=== PATIENT | female | born 1945 | race Caucasian/White ===

== ENCOUNTER → 2016-12-13 | Outpatient (REF) | payer MEDICARE, BC ==
[~2016-12-13] MED LIST: ASPI81TA85 PO; BIOT10005 PO; CALC600T21 PO; CINN500C9 PO; COQ-30CA2 PO; FEROCAP3 PO; IRBE300T10 PO; JANU100T PO; METF500T PO; METO25TA74 PO; MULT1CHW26 PO; MYRB25TA PO; OSTETAB4 PO; PAXI20TA3 PO; PAXI40TA2 PO; PROA1AER INH; SYST1SOL OU; VITA500046 PO; VITATAB11 PO
== END ==
LOC: M LAB REF 16:41
PROVIDERS: ATTEND Nurse Practitioner Adult Health
DX: Z01.89 Encounter for other specified special examinations (principal); Z79.899 Other long term (current) drug therapy

== ENCOUNTER 2017-01-04 20:06 | Emergency (ER) | payer OTHER, MEDICARE, BC ==
[~2017-01-04] VITALS: Ht 154.9 cm; Wt 97.5 kg
[~2017-01-04 20:06] MED LIST changes: +PANT20TA PO; +PRAV10TA PO
[2017-01-04] MEDS ORDERED: ALLE180T33 PO (20:37)
[2017-01-04] MEDS ORDERED: CRAN250T PO (20:37)
[2017-01-04] MEDS ORDERED: FLUTISP (20:37)
[2017-01-04] MEDS ORDERED: ACETAMINOPHEN 325 MG TAB PO ONE (21:45)
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
--- NOTE | 2017-01-04 22:10 | REPUSA ---
CLINICAL HISTORY: Neck pain. TECHNIQUE: Multiple axial images were obtained through the cervical spine. Images were also reconstru cted in coronal and sagittal planes. The study was performed without IV contrast. COMMENTS: There is no fracture. Grade 1 anterior spondylolisthesis is noted. The paraspinal soft tissues are u nremarkable. There are no lytic or blastic lesions. Straightening of cervical lordosis is seen, suggesting muscular spasm. There is evidence of multileve l disk disease, demonstrated by osteophytosis and endplate sclerosis. IMPRESSION: 1. No fracture. 2. Grade 1 anterior spondylolisthesis 3. Straightening of cervical lordosis is seen, suggesting muscular spasm. 4. Multilevel spondylosis. Thank you for your kind referral of this patient.
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
[2017-01-04] MEDS ORDERED: CYCL10TA PO (22:29)
[2017-01-04] MEDS ORDERED: IBUP600T26 PO (22:29)
[2017-01-04 22:43] VITALS: BP 124/69
== END 2017-01-04 22:58 | disposition home or self-care (01) ==
LOC: M ED 21:10
DX: S06.0X0A Concussion without loss of consciousness, initial encounter (principal); S13.4XXA Sprain of ligaments of cervical spine, initial encounter; V49.40XA Driver injured in collision with unspecified motor vehicles in traffic accident, initial encounter; Y92.410 Unspecified street and highway as the place of occurrence of the external cause; Y93.89 Activity, other specified; Y99.9 Unspecified external cause status

== ENCOUNTER → 2017-03-16 | Outpatient (REF) | payer MEDICARE, BC, OTHER ==
[~2017-03-16] MED LIST changes: +ALLE180T33 PO; -BIOT10005 PO; +BIOT10008 PO; -CALC600T21 PO; +CALC600T60 PO; +CRAN250T PO; +CYCL10TA PO; +FLUTISP; +IBUP-1022 PO; -METF500T PO; +METF500T13 PO; +METO-346 PO; +METO1TAB32 PO; -METO25TA74 PO; +PAXI20TA29 PO; -PAXI20TA3 PO; +PAXI40TA10 PO; -PAXI40TA2 PO; -PRAV10TA PO; +PRAV10TA4 PO; -PROA1AER INH; +PROAAER10 INH
== END ==
LOC: M LAB REF 16:35
PROVIDERS: ATTEND Nurse Practitioner Adult Health
DX: R30.0 Dysuria (principal)

== ENCOUNTER → 2018-04-06 | Outpatient (REF) | payer MEDICARE, BC, OTHER | LOC: M LAB REF 17:10 | DX: Z11.59 Encounter for screening for other viral diseases (principal) | CPT/HCPCS: 86780 ==

== ENCOUNTER → 2018-06-27 | Outpatient (CLI) | payer MEDICARE, BC ==
[~2018-06-27] MED LIST changes: -ALLE180T33 PO; -ASPI81TA85 PO; -BIOT10008 PO; -CALC600T60 PO; -CINN500C9 PO; -COQ-30CA2 PO; -CRAN250T PO; -CYCL10TA PO; -FEROCAP3 PO; -FLUTISP; -IBUP-1022 PO; -IRBE300T10 PO; +ISOVUE-370 76% 100ML VIAL (Q9967) As Ordered; -JANU100T PO; -METF500T13 PO; -METO-346 PO; -METO1TAB32 PO; -MULT1CHW26 PO; -MYRB25TA PO; -OSTETAB4 PO; -PANT20TA PO; -PAXI20TA29 PO; -PAXI40TA10 PO; -PRAV10TA4 PO; -PROAAER10 INH; -SYST1SOL OU; -VITA500046 PO; -VITATAB11 PO
== END ==
LOC: M RAD 10:53
DX: R26.89 Other abnormalities of gait and mobility (principal); I67.82 Cerebral ischemia; R23.3 Spontaneous ecchymoses
CPT/HCPCS: Q9967

== ENCOUNTER → 2018-07-20 | Outpatient (CLI) | payer MEDICARE, BC ==
[~2018-07-20] MED LIST changes: +ALLE180T33 PO; +ASPI81TA85 PO; +BIOT10008 PO; +CALC600T60 PO; +CINN500C9 PO; +COQ-30CA2 PO; +CRAN250T PO; +CYCL10TA PO; +FEROCAP3 PO; +FLUTISP; +IBUP-1022 PO; +IRBE300T10 PO; -ISOVUE-370 76% 100ML VIAL (Q9967) As Ordered; +JANU100T PO; +METF500T13 PO; +METO-346 PO; +METO1TAB32 PO; +MULT1CHW26 PO; +MYRB25TA PO; +OSTETAB4 PO; +PANT20TA2 PO; +PAXI20TA29 PO; +PAXI40TA10 PO; +PRAV10TA4 PO; +PROAAER10 INH; +SYST1SOL OU; +VITA500046 PO; +VITATAB11 PO
--- NOTE | 2018-07-25 13:28 | EEG ---
DATE OF PROCEDURE: 07/20/2018 REFERRING PHYSICIAN: JOSSUE Cameron DIAGNOSIS: Closed head injury, rule out seizures. EEG NUMBER: [id number]. HISTORY: The patient is a 73-year-old man with history of involuntary head jerking and head injury. This EEG was done to rule out epileptic potential. He is currently taking aspirin, Deidra, Flonase, irbesartan, metformin, metoprolol, Protonix, Paxil, pravastatin, Januvia, etc. TECHNICAL DESCRIPTION: This digital EEG was recorded by 21 scalp ear and two EKG electrodes and was reviewed in bipolar and referential montages following reformatting in 10-20 international electrode placement system. INTERPRETATION: The patient was noted to be in awake state during this EEG. Resting awake background rhythm consisted of 9 Hz alpha activity measuring 15 - 30 microvolts in amplitude which was symmetric and reactive to eye opening. No sleep was achieved. Hyperventilation and photic stimulation remained unremarkable. EKG revealed normal sinus rhythm. No focal, lateralizing or epileptiform abnormalities were seen. No clinical or electrographic seizures were recorded. CONCLUSION: This EEG in awake state is within normal limits.
== END ==
LOC: M SLEEP 08:08
PROVIDERS: ATTEND Nurse Practitioner Adult Health
DX: S09.90XA Unspecified injury of head, initial encounter (principal); Y92.89 Other specified places as the place of occurrence of the external cause; Y93.9 Activity, unspecified

== ENCOUNTER → 2018-10-09 | Outpatient (REF) | payer MEDICARE, BC ==
[2018-10-09 13:12] LABS: INFLUENZA A AMPLIFICATION POSITIVE (NEGATIVE); INFLUENZA B AMPLIFICATION NEGATIVE (NEGATIVE)
== END ==
LOC: M LAB REF 12:31
PROVIDERS: ATTEND Nurse Practitioner Adult Health
DX: R05 Cough (principal); R06.2 Wheezing

== ENCOUNTER → 2018-12-18 | Outpatient (REF) | payer MEDICARE, SELFPAY | LOC: M LAB LCGH 14:50 | PROVIDERS: ATTEND Physician Assistant | DX: D22.9 Melanocytic nevi, unspecified (principal) ==

== ENCOUNTER → 2019-03-05 | Outpatient (CLI) | payer MEDICARE, BC ==
--- NOTE | 2019-03-07 08:07 | EEG ---
DATE OF EE03/05/2019 REFERRING PROVIDER: Sarah Stevens NP DIAGNOSIS: Transient global amnesia. EEG NUMBER: [id number] HISTORY: The patient is a 73-year-old woman with a history of transient global amnesia. This EEG was done to rule out epileptic potential. She is currently taking Xanax, Paxil, irbesartan, metformin, pravastatin, etc. TECHNICAL DESCRIPTION: This digital EEG was recorded by 21 scalp, ear and two EKG electrodes and was reviewed in bipolar and referential montages following reformatting in 10-20 international electrode placement system. INTERPRETATION: The patient was noted to be in awake and drowsy states during this EEG. Resting awake background rhythm consisted of 9 Hz alpha activity measuring 15-40 microvolts in amplitude, which was symmetric and reactive to eye opening. Attenuation of posterior dominant rhythm was seen during transition into drowsiness. No sleep was achieved. Hyperventilation could not be performed. Photic stimulation remained unremarkable. EKG revealed normal sinus rhythm. No focal, lateralizing or epileptiform abnormalities were seen. No clinical or electrographic seizures were recorded. CONCLUSION: This EEG in awake and drowsy states is within normal limits.
== END ==
LOC: M SLEEP 08:04
PROVIDERS: ATTEND Nurse Practitioner Adult Health
DX: G45.4 Transient global amnesia (principal)

== ENCOUNTER → 2020-01-28 | Outpatient (CLI) | payer MEDICARE, BC ==
[~2020-01-28] MED LIST changes: -ASPI81TA85 PO; +ASPI81TA86 PO; +BIOT1CAP2 PO; +COQ-100C5 PO; +CYCL-707 PO; -CYCL10TA PO; +D 50CAP2 PO; +HM V5000 PO; +ICAPTAB PO; -IRBE300T10 PO; +IRBE300T7 PO; +METF-839 PO; +METO1TAB87 PO; -PANT20TA2 PO; +PANT20TA6 PO; +PARO40TA3 PO; +PRAV10TA3 PO; +PRAV20TA2 PO; +VITA100T14 PO; +VITA200016 PO; +VITA400C83 PO; +VITATAB73 PO; +XANA0.5T PO
== END ==
LOC: M LABSMTC 09:50
PROVIDERS: ATTEND Anesthesiology
DX: Z01.818 Encounter for other preprocedural examination (principal)
CPT/HCPCS: C9803; U0003

== ENCOUNTER 2020-01-31 09:32 | Day surgery (SDC) | payer MEDICARE, BC ==
[~2020-01-31] VITALS: Ht 157.5 cm; Wt 98.9 kg
[~2020-01-31 09:32] MED LIST changes: +ASPI81TA85 PO; -ASPI81TA86 PO; +NS 1,000 ML IV ONE; +PANT20TA2 PO; -PANT20TA6 PO; +VITA1CAP15 PO; -VITA400C83 PO
[2020-01-31] MEDS ORDERED: LIDOCAINE 2% 100MG/5ML SDV (FOR ANES.) As Ordered ONE (10:16)
[2020-01-31] MEDS ORDERED: propofoL 200 MG/20 ML VIAL As Ordered ONE ×2 (10:16→10:56)
--- NOTE | 2020-01-31 10:28 | ROOR ---
Patient Name: Della Moore Procedure Date: 01/31/2020 10:17 AM Date of : 1945 Age: 74 Room: [facility] Gender: Female Note Status: Finalized Procedure: Upper GI endoscopy Indications: Heartburn Providers: Amanuel Elizabeth MD Referring MD: Natalie Carmen NP Requesting Provider: Medicines: Monitored Anesthesia Care Complications: No immediate complications. Procedure: Pre-Anesthesia Assessment: - The heart rate, respiratory rate, oxygen saturations, blood pressure, adequacy of pulmonary ventilation, and response to care were monitored throughout the procedure. The Endoscope was introduced through the mouth, and advanced to the second part of duodenum. The upper GI endoscopy was accomplished without difficulty. The patient tolerated the procedure well. Findings: The Z-line was regular and was found 40 cm from the incisors. 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 A gastric pouch with a small size was found. The staple line appeared intact. The gastrojejunal anastomosis was characterized by healthy appearing mucosa. This was traversed. The esophagus was normal. The stomach was normal. The examined duodenum was normal. Impression: - Z-line regular, 40 cm from the incisors. - Gastric bypass with a small-sized pouch and intact staple line. Gastrojejunal anastomosis characterized by healthy appearing mucosa. - Normal esophagus. - Normal stomach. - Normal examined duodenum. - No specimens collected. - The examination was otherwise normal. Recommendation: - Patient has a contact number available for emergencies. The signs and symptoms of potential delayed complications were discussed with the patient. Return to normal activities tomorrow. Written discharge instructions were provided to the patient. - Resume previous diet. - Discharge patient to home. - Follow an antireflux regimen. - Continue present medications. - Return to referring physician. - The findings and recommendations were discussed with the patient. Amanuel Elizabeth MD Amanuel Elizabeth MD 01/31/2020 10:27:40 AM Electronically signed by Amanuel Elizabeth MD Number of Addenda: 0 Note Initiated On: 01/31/2020 10:17 AM Estimated Blood Loss: Estimated blood loss: none.
--- NOTE | 2020-01-31 10:56 | ROOR ---
Patient Name: Della Moore Procedure Date: 01/31/2020 10:17 AM Date of : 1945 Age: 74 Room: [facility] Gender: Female Note Status: Finalized Procedure: Total Colonoscopy to Cecum + Cold Snare Polypectomy + Hemoclip Indications: Screening for colorectal malignant neoplasm Providers: Amanuel Elizabeth MD Referring MD: Natalie Carmen NP Requesting Provider: Medicines: Monitored Anesthesia Care Complications: No immediate complications. Procedure: Pre-Anesthesia Assessment: - The heart rate, respiratory rate, oxygen saturations, blood pressure, adequacy of pulmonary ventilation, and response to care were monitored throughout the procedure. The Colonoscope was introduced through the anus and advanced to the cecum, identified by appendiceal orifice and ileocecal valve. The colonoscopy was performed without difficulty. The patient tolerated the procedure well. The quality of the bowel preparation was excellent. Findings: The perianal and digital rectal examinations were normal. Non-bleeding internal hemorrhoids were found during retroflexion. The hemorrhoids were small and Grade I (internal hemorrhoids that do not prolapse). Multiple small and large-mouthed diverticula were found in the recto-sigmoid colon, sigmoid colon and descending colon. A medium polyp was found at 20 cm proximal to the anus. The polyp was sessile. The polyp was removed with a cold snare. Resection and retrieval were complete. To prevent bleeding after the polypectomy, two hemostatic clips were successfully placed (MR conditional). There was no bleeding at the end of the procedure. A small polyp was found in the cecum. The polyp was sessile. The polyp was removed with a cold snare. Resection and retrieval were complete. To prevent bleeding after the polypectomy, one hemostatic clip was successfully placed (MR conditional). There was no bleeding at the end of the procedure. The exam was otherwise without abnormality on direct and retroflexion views. Impression: - Non-bleeding internal hemorrhoids. - Diverticulosis in the recto-sigmoid colon, in the sigmoid colon and in the descending colon. - One medium polyp at 20 cm proximal to the anus, removed with a cold snare. Resected and retrieved. Clips (MR conditional) were placed. - One small polyp in the cecum, removed with a cold snare. Resected and retrieved. Clip (MR conditional) was placed. - The examination was otherwise normal on direct and retroflexion views. - The exam was otherwise normal to the cecum. Recommendation: - Patient has a contact number available for emergencies. The signs and symptoms of potential delayed complications were discussed with the patient. Return to normal activities tomorrow. Written discharge instructions were provided to the patient. - High fiber diet. - Discharge patient to home. - Continue present medications. - Await pathology results. - Telephone GI clinic for pathology results in 1 week. - Repeat colonoscopy in 5 years for surveillance based on pathology results. - The findings and recommendations were discussed with the patient. Amanuel Elizabeth MD Amanuel Elizabeth MD 01/31/2020 10:55:46 AM Electronically signed by Amanuel Elizabeth MD Number of Addenda: 0 Note Initiated On: 01/31/2020 10:17 AM Estimated Blood Loss: Estimated blood loss: none.
[2020-01-31 11:20] VITALS: BP 125/57
== END 2020-01-31 12:10 | disposition home or self-care (01) ==
LOC: M OPP 09:32
PROVIDERS: ATTEND Internal Medicine Gastroenterology
DX: Z12.11 Encounter for screening for malignant neoplasm of colon (principal); K64.9 Unspecified hemorrhoids; K63.5 Polyp of colon; K57.30 Diverticulosis of large intestine without perforation or abscess without bleeding; Z98.84 Bariatric surgery status; Z79.82 Long term (current) use of aspirin; Z79.84 Long term (current) use of oral hypoglycemic drugs; Z79.899 Other long term (current) drug therapy; Z88.5 Allergy status to narcotic agent; Z88.8 Allergy status to other drugs, medicaments and biological substances; Z91.048 Other nonmedicinal substance allergy status

== ENCOUNTER → 2020-06-02 | Outpatient (CLI) | payer MEDICARE, BC ==
[~2020-06-02] MED LIST changes: -ASPI81TA85 PO; +ASPI81TA86 PO; -NS 1,000 ML IV ONE; -PANT20TA2 PO; +PANT20TA6 PO; -VITA1CAP15 PO; +VITA400C83 PO
--- NOTE | 2020-06-02 16:02 | REP ---
INDICATION: PAIN AND SWELLING OF LT LEG. COMPARISON: October 21, 2008.. FINDINGS: The deep veins are anechoic and fully compressible from the groin to the popliteal fossa in the left lower extremity. Color flow imaging is homogeneous. Spectral Doppler interrogation demonstrates intact respiratory variation in flow and normal manual augmentation of flow. There is no evidence of deep vein thrombosis. IMPRESSION: Negative left lower extremity duplex venous ultrasound. No evidence of deep vein thrombosis. <Electronically signed by Kamran Carvajal > 06/02/20 [id number]
== END ==
LOC: M RAD 15:18
PROVIDERS: ATTEND Nurse Practitioner Adult Health
DX: R22.42 Localized swelling, mass and lump, left lower limb (principal)

== ENCOUNTER → 2020-06-02 | Outpatient (REF) | payer MEDICARE, BC | LOC: M LAB REF 16:20 | PROVIDERS: ATTEND Nurse Practitioner Adult Health | DX: R30.0 Dysuria (principal) ==

== ENCOUNTER → 2021-05-26 | Outpatient (CLI) | payer MEDICARE, BC | LOC: M LABSMTC 11:21 | PROVIDERS: ATTEND Pediatrics | DX: Z20.822 Contact with and (suspected) exposure to COVID-19 (principal) | CPT/HCPCS: C9803; U0003 ==

== ENCOUNTER → 2022-08-03 | Outpatient (REF) | payer MEDICARE, BC ==
[~2022-08-03] MED LIST changes: -PAXI20TA29 PO; +PAXI20TA30 PO; -PAXI40TA10 PO; +PAXI40TA12 PO
== END ==
LOC: M LAB REF 16:06
PROVIDERS: ATTEND Nurse Practitioner Adult Health
DX: E78.00 Pure hypercholesterolemia, unspecified (principal); E78.2 Mixed hyperlipidemia

== ENCOUNTER 2023-05-12 20:34 | Inpatient (IN) | payer MEDICARE, BC ==
[~2023-05-12] VITALS: Ht 154.9 cm; Wt 91.7 kg
[~2023-05-12 20:34] MED LIST changes: +FLUT50SP17; -FLUTISP
[2023-05-12] MEDS ORDERED: THIAMINE 100 MG TAB PO SCH (21:00)
[2023-05-12 21:50] LABS: BASO # 0.1 10^3/uL (0.0-0.2); BASO % 0.5 % (0.0-1.0); EOS # 0.2 10^3/uL (0.0-0.5); EOS % 1.8 % (0.0-3.0); HEMATOCRIT 40.9 % (36.0-47.0); HEMOGLOBIN 13.7 g/dl (12.0-15.5); LYMPH % 21.1 % (24.0-44.0); MEAN CORPUSCULAR HEMOGLOBIN 29.4 pg (27.0-33.0); MEAN CORPUSCULAR HGB CONC 33.5 g/dl (32.0-36.5); MEAN CORPUSCULAR VOLUME 87.8 fl (80.0-96.0); MONO # 0.7 10^3/uL (0.0-0.8); MONO % 6.8 % (2.0-8.0); NEUTROPHILS # 6.7 10^3/uL (1.5-8.5); NEUTROPHILS % 69.3 % (36.0-66.0); PLATELET COUNT, AUTOMATED 262 10^3/uL (150-450); RED BLOOD COUNT 4.66 10^6/uL (4.00-5.40); WHITE BLOOD COUNT 9.7 10^3/uL (4.0-10.0)
[2023-05-12 22:06] LABS: AMPHETAMINES LEVEL URINE NEGATIVE (NEGATIVE); BARBITURATES URINE NEGATIVE (NEGATIVE)
[2023-05-12 22:07] LABS: CANNABINOIDS URINE NEGATIVE (NEGATIVE); COCAINE METABOLITE URINE NEGATIVE (NEGATIVE); METHADONE URINE NEGATIVE (NEGATIVE); OPIATES URINE NEGATIVE (NEGATIVE); PHENCYCLIDINE URINE NEGATIVE (NEGATIVE)
[2023-05-12 22:09] LABS: ETHYL ALCOHOL (ETHANOL) < 0.003 % (0.000-0.010)
[2023-05-12 22:10] LABS: ACETAMINOPHEN LEVEL < 2.0 UG/ML (10.0-20.0); CPK CREATINE PHOSPHOKINASE 58 U/L (34-145)
[2023-05-12 22:11] LABS: ALBUMIN 3.6 G/DL (3.2-5.2); ALKALINE PHOSPHATASE 106 U/L (46-116); ALT/SGPT 126 U/L (7.0-40); AST/SGOT 55 U/L (<34); BILIRUBIN,DIRECT 0.1 MG/DL (<0.4); BILIRUBIN,TOTAL 0.4 MG/DL (0.3-1.2); BLOOD UREA NITROGEN 15 MG/DL (9-23); CALCIUM LEVEL 9.3 MG/DL (8.3-10.6); CARBON DIOXIDE LEVEL 23 MMOL/L (20-31); CHLORIDE LEVEL 108 MMOL/L (98-107); CK-MB VALUE MASS < 1.0 NG/ML (<3.6); CREATININE FOR GFR 1.09 MG/DL (0.55-1.30); GLUCOSE, FASTING 165 MG/DL (74-106); MB/CK RELATIVE INDEX 1.72 (< OR =4); POTASSIUM SERUM 4.3 MMOL/L (3.5-5.1); SALICYLATE LEVEL < 3.0 MG/DL (<30); SODIUM LEVEL 140 MMOL/L (136-145); TOTAL PROTEIN 6.9 G/DL (5.7-8.2)
[2023-05-12 22:15] LABS: BENZODIAZEPINES URINE POSITIVE (NEGATIVE)
[2023-05-12 22:16] LABS: THYROID STIMULATING HORMONE 6.144 uIU/ML (0.55-4.78)
[2023-05-12 22:27] LABS: RSV AMPLIFICATION NEGATIVE (NEGATIVE)
[2023-05-12] MEDS ORDERED: cefTRIAXone SOD 1 GM in D5W MINI-BAG PLUS 50 ML IV ONE (23:00)
[2023-05-12] MEDS ORDERED: FARX1TAB5 PO (23:30)
[2023-05-12] MEDS ORDERED: PRESCAP PO (23:30)
[2023-05-12] MEDS ORDERED: SITA50TAB PO (23:30)
[2023-05-12] MEDS ORDERED: CENTCHW3 PO (23:30)
[2023-05-12] MEDS ORDERED: TOLT2TAB12 PO (23:30)
[2023-05-12] MEDS ORDERED: CO Q10CA PO (23:30)
[2023-05-12] MEDS ORDERED: ASPI81TA26 PO (23:31)
[2023-05-12] MEDS ORDERED: CO Q200C10 PO (23:33)
[2023-05-12] MEDS ORDERED: HOME MED LIST COMPLETE! XX SCH (23:35)
[2023-05-13] MEDS ORDERED: GLUCOSE 4GM CHEW TABLET PO PRN (00:15)
[2023-05-13] MEDS ORDERED: DEXTROSE 50% 50ML SYRINGE IV PRN (00:15)
[2023-05-13] MEDS ORDERED: ACETAMINOPHEN TAB 650MG DOSE (2X325MG) PO PRN (00:15)
[2023-05-13] MEDS ORDERED: GLUCAGON INJ 1MG VIAL SC PRN (00:15)
[2023-05-13] MEDS ORDERED: OLANZapine 2.5MG TABLET PO ONE ×2 (01:00→16:20)
[2023-05-13 07:23] LABS: FREE T4 1.04 NG/DL (0.89-1.76)
[2023-05-13] MEDS: THIAMINE 200MG 2ML VIAL IV SCH ×3 (08:27→20:51)
[2023-05-13] MEDS: MULTIVITAMINS/MINERALS THERAP 1 TAB PO SCH (08:27)
[2023-05-13] MEDS: FOLIC ACID 1MG TAB PO SCH (08:27)
[2023-05-13] MEDS: INSULIN LISPRO (NovoLOG) PER UNIT SC SCH ×4 (08:29→20:50)
[2023-05-13] MEDS ORDERED: SITagliptin 50 MG TAB (JANUVIA) PO SCH (09:00)
[2023-05-13] MEDS ORDERED: CEFDINIR 300 MG CAP (OMNICEF) PO SCH (09:00)
[2023-05-13 09:58] LABS: C REACTIVE PROTEIN QUANTITATIV < 0.40 MG/DL (<1.0)
[2023-05-13] MEDS ORDERED: ALPRAZolam 0.5 MG TAB PO PRN (11:50)
[2023-05-13] MEDS: METOPROLOL TART 25 MG TABLET PO SCH ×2 (12:22→20:50)
[2023-05-13] MEDS: PARoxetine 20MG TABLET PO SCH ×2 (12:23→20:50)
[2023-05-13 14:00] VITALS: BP 112/69
[2023-05-13 14:15] VITALS: BP 112/69; TEMP 98.1; O2SAT 97
[2023-05-13] MEDS ORDERED: OLAN2.5T25 PO (16:03)
[2023-05-13 16:20] LABS: HEPATITIS C VIRUS ABY INDEX 0.04 INDEX (<0.8)
[2023-05-13 16:21] LABS: HEPATITIS B CORE ANTIBODY IGM NEGATIVE (NEGATIVE)
[2023-05-13] MEDS ORDERED: OLAN1TAB16 PO (16:21)
[2023-05-13 20:00] VITALS: BP 110/67; TEMP 97.5; O2SAT 98
[2023-05-13] MEDS: IRBESARTAN 150MG TAB PO SCH (20:49)
[2023-05-13] MEDS: TOLTERODINE (DETROL) 2 MG TAB PO SCH (20:50)
[2023-05-13] MEDS ORDERED: metFORMIN (GLUCOPHAGE) 500MG TAB PO SCH (21:00)
[2023-05-13 21:24] VITALS: BP 110/67
[2023-05-14] MEDS ORDERED: UNRESOLVED CLARIFICATION ENTRY XX SCH (00:01)
[2023-05-14] MEDS: metFORMIN (GLUCOPHAGE) 1000MG TABLET PO SCH ×3 (00:57→17:14)
[2023-05-14 06:00] VITALS: BP 152/84; TEMP 97.6; O2SAT 96
[2023-05-14 07:10] VITALS: BP 152/84
[2023-05-14] MEDS ORDERED: ASPIRIN 81MG ENTERIC TABLET PO SCH (09:00)
[2023-05-14] MEDS ORDERED: MULTIVITAMINS/MINERALS THERAP 1 TAB PO SCH (09:00)
[2023-05-14] MEDS: MULTIVITAMINS/MINERALS THERAP 1 TAB PO SCH (09:21)
[2023-05-14] MEDS: INSULIN LISPRO (NovoLOG) PER UNIT SC SCH ×4 (09:21→21:00)
[2023-05-14] MEDS: TOLTERODINE (DETROL) 2 MG TAB PO SCH (09:21)
[2023-05-14] MEDS: THIAMINE 200MG 2ML VIAL IV SCH (09:22)
[2023-05-14] MEDS: PARoxetine 20MG TABLET PO SCH ×2 (09:22→21:09)
[2023-05-14] MEDS: SITagliptin 50 MG TAB (JANUVIA) PO SCH (09:22)
[2023-05-14] MEDS: FOLIC ACID 1MG TAB PO SCH (09:22)
[2023-05-14] MEDS: METOPROLOL TART 25 MG TABLET PO SCH ×2 (09:23→21:09)
[2023-05-14 14:00] VITALS: BP 118/65
[2023-05-14 14:30] VITALS: BP 118/65; TEMP 97.5; O2SAT 96
[2023-05-14] MEDS: THIAMINE 100 MG TAB PO SCH ×2 (17:14→21:09)
[2023-05-14 20:00] VITALS: BP 123/62; TEMP 97.5; O2SAT 96
[2023-05-14] MEDS ORDERED: OLANZapine 5 MG TAB PO SCH (21:00)
[2023-05-14] MEDS: IRBESARTAN 150MG TAB PO SCH (21:09)
[2023-05-14 22:00] VITALS: BP 123/62
[2023-05-15 05:30] VITALS: BP 132/76; TEMP 97.7; O2SAT 97
[2023-05-15] MEDS: INSULIN LISPRO (NovoLOG) PER UNIT SC SCH ×2 (08:05→12:45)
[2023-05-15] MEDS: FOLIC ACID 1MG TAB PO SCH (08:05)
[2023-05-15] MEDS: metFORMIN (GLUCOPHAGE) 1000MG TABLET PO SCH (08:06)
[2023-05-15 08:08] VITALS: BP 142/77
[2023-05-15] MEDS: THIAMINE 100 MG TAB PO SCH (08:08)
[2023-05-15] MEDS: METOPROLOL TART 25 MG TABLET PO SCH (08:08)
[2023-05-15] MEDS: SITagliptin 50 MG TAB (JANUVIA) PO SCH (08:08)
[2023-05-15] MEDS: MULTIVITAMINS/MINERALS THERAP 1 TAB PO SCH (08:09)
[2023-05-15] MEDS: PARoxetine 20MG TABLET PO SCH (08:09)
[2023-05-15] MEDS ORDERED: ENOXAPARIN 40MG/0.4ML SYRINGE (J1650 PER 10MG) SC SCH (09:00)
[2023-05-15 14:01] VITALS: BP 118/68; TEMP 97.6; O2SAT 97
== END 2023-05-15 14:35 | DRG 57 ==
LOC: M ED 20:34 → M ED INP 23:04 → EEVIPCON 23:04 → ENRESERV 05-13 13:28 → M MS5PR 05-13 14:15
PROVIDERS: ADMIT Internal Medicine; ATTEND Student in an Organized Health Care Education/Training Program
DX: G31.09 Other frontotemporal neurocognitive disorder (principal); R45.851 Suicidal ideations; F01.52 Vascular dementia, unspecified severity, with psychotic disturbance; F02.82 Dementia in other diseases classified elsewhere, unspecified severity, with psychotic disturbance; R82.81 Pyuria; E11.9 Type 2 diabetes mellitus without complications; N32.81 Overactive bladder; E66.9 Obesity, unspecified; Z81.8 Family history of other mental and behavioral disorders; F10.20 Alcohol dependence, uncomplicated; F32.A Depression, unspecified; F41.9 Anxiety disorder, unspecified; I10 Essential (primary) hypertension; H91.93 Unspecified hearing loss, bilateral; F07.89 Other personality and behavioral disorders due to known physiological condition; Z79.84 Long term (current) use of oral hypoglycemic drugs; E02 Subclinical iodine-deficiency hypothyroidism; Z79.82 Long term (current) use of aspirin; Z87.442 Personal history of urinary calculi; Z88.8 Allergy status to other drugs, medicaments and biological substances; Z98.84 Bariatric surgery status; Z91.048 Other nonmedicinal substance allergy status

== ENCOUNTER 2023-05-15 11:55 | Inpatient (IN) | payer MEDICARE, BC ==
[~2023-05-15] VITALS: Ht 154.9 cm; Wt 93.4 kg
[~2023-05-15 11:55] MED LIST changes: +ASPI81TA26 PO; +CENTCHW3 PO; +CO Q10CA PO; +CO Q200C10 PO; +FARX1TAB5 PO; +OLAN1TAB16 PO; +OLAN2.5T25 PO; +PRESCAP PO; +SITA50TAB PO; +TOLT2TAB12 PO
[2023-05-15] MEDS ORDERED: MOM 30ML SUSPENSION UDC PO PRN (12:05)
[2023-05-15] MEDS ORDERED: IBUPROFEN 400MG TAB PO PRN (12:05)
[2023-05-15] MEDS ORDERED: ACETAMINOPHEN TAB 650MG DOSE (2X325MG) PO PRN (12:05)
[2023-05-15] MEDS ORDERED: diphenhydrAMINE 25MG CAP PO PRN (12:05)
[2023-05-15] MEDS ORDERED: LORazepam 2 MG TAB PO PRN (12:05)
[2023-05-15] MEDS ORDERED: MAALOX 30 ML SUSP *UDC PO PRN (12:05)
[2023-05-15] MEDS ORDERED: ALPRAZolam 0.25 MG TAB PO PRN (12:05)
[2023-05-15] MEDS ORDERED: traZODone 50 MG TAB PO PRN (12:05)
[2023-05-15 14:41] VITALS: BP 155/72; TEMP 98.2; O2SAT 97
[2023-05-15] MEDS: metFORMIN (GLUCOPHAGE) 1000MG TABLET PO SCH (17:18)
[2023-05-15 20:57] VITALS: BP 145/70
[2023-05-15] MEDS: METOPROLOL TART 25 MG TABLET PO SCH (21:00)
[2023-05-15] MEDS ORDERED: TOLTERODINE (DETROL) 2 MG TAB PO SCH (21:00)
[2023-05-15] MEDS: OLANZapine 5 MG TAB PO SCH (21:00)
[2023-05-15] MEDS: THIAMINE 100 MG TAB PO SCH (21:00)
[2023-05-15] MEDS: IRBESARTAN 150MG TAB PO SCH (21:00)
[2023-05-15] MEDS: PARoxetine 20MG TABLET PO SCH (21:00)
[2023-05-16 06:37] VITALS: BP 150/90; TEMP 98.6; O2SAT 96
[2023-05-16] MEDS ORDERED: FOLIC ACID 1MG TAB PO SCH (09:00)
[2023-05-16] MEDS ORDERED: MULTIVITAMINS/MINERALS THERAP 1 TAB PO SCH (09:00)
[2023-05-16] MEDS: metFORMIN (GLUCOPHAGE) 1000MG TABLET PO SCH ×2 (09:13→17:30)
[2023-05-16] MEDS: METOPROLOL TART 25 MG TABLET PO SCH ×2 (09:14→20:36)
[2023-05-16] MEDS: SITagliptin 50 MG TAB (JANUVIA) PO SCH (09:14)
[2023-05-16] MEDS: THIAMINE 100 MG TAB PO SCH (09:14)
[2023-05-16] MEDS: PARoxetine 20MG TABLET PO SCH ×2 (09:14→20:36)
[2023-05-16] MEDS: ASPIRIN 81MG ENTERIC TABLET PO SCH (09:14)
[2023-05-16 16:08] VITALS: BP 114/58; TEMP 98.3; O2SAT 100
[2023-05-16 16:12] VITALS: BP 130/70
[2023-05-16] MEDS: OLANZapine 5 MG TAB PO SCH (20:36)
[2023-05-16] MEDS: IRBESARTAN 150MG TAB PO SCH (20:38)
[2023-05-17 06:34] VITALS: BP 128/68; TEMP 97.8; O2SAT 97
[2023-05-17 07:31] LABS: CHOLESTEROL RISK RATIO 3.22 (<5); HDL CHOLESTEROL 48.4 MG/DL (>40); LDL CHOLESTEROL 66.2 MG/DL (<100); NON-HDL-C 107.6 MG/DL
[2023-05-17] MEDS: PARoxetine 20MG TABLET PO SCH ×2 (08:23→21:07)
[2023-05-17] MEDS: SITagliptin 50 MG TAB (JANUVIA) PO SCH (08:23)
[2023-05-17] MEDS: metFORMIN (GLUCOPHAGE) 1000MG TABLET PO SCH ×2 (08:24→17:12)
[2023-05-17] MEDS: METOPROLOL TART 25 MG TABLET PO SCH ×2 (08:24→21:07)
[2023-05-17] MEDS ORDERED: OLANZapine ORAL DISINTEGRATING TAB 5MG PO PRN (08:35)
[2023-05-17 16:06] VITALS: BP 143/78; TEMP 98; O2SAT 98
[2023-05-17] MEDS: OLANZapine 5 MG TAB PO SCH (21:06)
[2023-05-17] MEDS: IRBESARTAN 150MG TAB PO SCH (21:06)
[2023-05-18 06:34] VITALS: BP 131/71; TEMP 97.3; O2SAT 96
[2023-05-18 08:48] VITALS: BP 146/76
[2023-05-18] MEDS: METOPROLOL TART 25 MG TABLET PO SCH ×2 (08:51→21:09)
[2023-05-18] MEDS: PARoxetine 20MG TABLET PO SCH ×2 (08:51→21:08)
[2023-05-18] MEDS: SITagliptin 50 MG TAB (JANUVIA) PO SCH (08:51)
[2023-05-18] MEDS: ASPIRIN 81MG ENTERIC TABLET PO SCH (08:51)
[2023-05-18] MEDS: metFORMIN (GLUCOPHAGE) 1000MG TABLET PO SCH ×2 (08:51→17:20)
[2023-05-18] MEDS: OLANZapine 5 MG TAB PO SCH (21:08)
[2023-05-18] MEDS: IRBESARTAN 150MG TAB PO SCH (21:09)
[2023-05-19 06:25] VITALS: BP 123/59; TEMP 98.5; O2SAT 96
[2023-05-19] MEDS: metFORMIN (GLUCOPHAGE) 1000MG TABLET PO SCH ×2 (08:57→17:24)
[2023-05-19] MEDS: METOPROLOL TART 25 MG TABLET PO SCH ×2 (08:57→21:21)
[2023-05-19] MEDS: SITagliptin 50 MG TAB (JANUVIA) PO SCH (08:57)
[2023-05-19] MEDS: PARoxetine 20MG TABLET PO SCH ×2 (08:57→21:21)
[2023-05-19 16:25] VITALS: BP 140/79; TEMP 97.9; O2SAT 96
[2023-05-19] MEDS: OLANZapine 5 MG TAB PO SCH (21:20)
[2023-05-19] MEDS: IRBESARTAN 150MG TAB PO SCH (21:21)
[2023-05-20 06:34] VITALS: BP 151/90; TEMP 97.9; O2SAT 97
[2023-05-20] MEDS: metFORMIN (GLUCOPHAGE) 1000MG TABLET PO SCH ×2 (07:37→17:18)
[2023-05-20] MEDS: SITagliptin 50 MG TAB (JANUVIA) PO SCH (07:37)
[2023-05-20] MEDS: ASPIRIN 81MG ENTERIC TABLET PO SCH (07:37)
[2023-05-20] MEDS: METOPROLOL TART 25 MG TABLET PO SCH ×2 (07:37→20:35)
[2023-05-20] MEDS: PARoxetine 20MG TABLET PO SCH ×2 (07:37→20:31)
[2023-05-20 16:07] VITALS: BP 148/84; TEMP 98; O2SAT 94
[2023-05-20] MEDS: OLANZapine 5 MG TAB PO SCH (20:31)
[2023-05-20] MEDS: IRBESARTAN 150MG TAB PO SCH (20:32)
[2023-05-21 06:22] VITALS: BP 133/71; TEMP 97.4; O2SAT 97
[2023-05-21 08:33] VITALS: BP 145/87; O2SAT 96
[2023-05-21] MEDS: METOPROLOL TART 25 MG TABLET PO SCH ×2 (08:51→20:01)
[2023-05-21] MEDS: SITagliptin 50 MG TAB (JANUVIA) PO SCH (08:51)
[2023-05-21] MEDS: metFORMIN (GLUCOPHAGE) 1000MG TABLET PO SCH ×2 (08:51→17:25)
[2023-05-21] MEDS: PARoxetine 20MG TABLET PO SCH ×2 (08:51→20:02)
[2023-05-21 15:21] VITALS: BP 136/71; TEMP 97.6; O2SAT 96
[2023-05-21] MEDS ORDERED: ALBUTEROL 90 MCG/ACT 8GM HFA INHALER INH PRN (18:25)
[2023-05-21] MEDS: OLANZapine 5 MG TAB PO SCH (20:01)
[2023-05-21] MEDS: IRBESARTAN 150MG TAB PO SCH (20:01)
[2023-05-22 06:18] VITALS: BP 140/80; TEMP 96.7; O2SAT 97
[2023-05-22] MEDS: ASPIRIN 81MG ENTERIC TABLET PO SCH (10:39)
[2023-05-22] MEDS: metFORMIN (GLUCOPHAGE) 1000MG TABLET PO SCH ×2 (10:39→17:13)
[2023-05-22] MEDS: SITagliptin 50 MG TAB (JANUVIA) PO SCH (10:39)
[2023-05-22] MEDS: PARoxetine 20MG TABLET PO SCH ×2 (10:40→20:22)
[2023-05-22] MEDS: METOPROLOL TART 25 MG TABLET PO SCH ×2 (10:40→20:25)
[2023-05-22 18:09] VITALS: BP 132/82; TEMP 98.2; O2SAT 96
[2023-05-22] MEDS: OLANZapine 5 MG TAB PO SCH (20:22)
[2023-05-22] MEDS: IRBESARTAN 150MG TAB PO SCH (20:25)
[2023-05-23 06:06] VITALS: BP 148/78; TEMP 97.5; O2SAT 96
[2023-05-23] MEDS: PARoxetine 20MG TABLET PO SCH (08:22)
[2023-05-23 08:23] VITALS: BP 136/80
[2023-05-23] MEDS: SITagliptin 50 MG TAB (JANUVIA) PO SCH (08:23)
[2023-05-23] MEDS: metFORMIN (GLUCOPHAGE) 1000MG TABLET PO SCH (08:23)
[2023-05-23] MEDS: METOPROLOL TART 25 MG TABLET PO SCH (08:23)
[2023-05-23] MEDS ORDERED: PAXI40TA12 PO (09:54)
[2023-05-23] MEDS ORDERED: OLAN1TAB16 PO (09:54)
[2023-05-23] MEDS ORDERED: PAXI20TA30 PO (09:54)
[2023-05-23] MEDS ORDERED: OLAN5ZYD PO (09:54)
== END 2023-05-23 13:44 | disposition home or self-care (01) | DRG 885 ==
LOC: M PSY 14:40
PROVIDERS: ADMIT Student in an Organized Health Care Education/Training Program; ATTEND Student in an Organized Health Care Education/Training Program
DX: F33.3 Major depressive disorder, recurrent, severe with psychotic symptoms (principal); F04 Amnestic disorder due to known physiological condition; F22 Delusional disorders; I10 Essential (primary) hypertension; E02 Subclinical iodine-deficiency hypothyroidism; E11.9 Type 2 diabetes mellitus without complications; E66.9 Obesity, unspecified; Z98.84 Bariatric surgery status; Z81.8 Family history of other mental and behavioral disorders; F10.90 Alcohol use, unspecified, uncomplicated; Z79.82 Long term (current) use of aspirin; Z79.84 Long term (current) use of oral hypoglycemic drugs; Z79.899 Other long term (current) drug therapy; Z91.048 Other nonmedicinal substance allergy status; Z88.8 Allergy status to other drugs, medicaments and biological substances

== ENCOUNTER → 2023-06-01 | Outpatient (REF) | payer MEDICARE, BC ==
[~2023-06-01] MED LIST changes: +OLAN5ZYD PO
== END ==
LOC: M LAB REF 12:12
PROVIDERS: ATTEND Nurse Practitioner Family
DX: E11.21 Type 2 diabetes mellitus with diabetic nephropathy (principal); N39.0 Urinary tract infection, site not specified

== ENCOUNTER 2024-11-19 12:49 | Inpatient (IN) | payer MEDICARE, BC ==
[2024-11-19] VITALS (25 sets, daily range): BP systolic 87–165; BP diastolic 50–87; TEMP 99.1–99.7; O2SAT 93–99
[2024-11-19] MEDS: PANTOPRAZOLE 40MG VIAL IV SCH (09:00)
[~2024-11-19 12:49] MED LIST changes: -FLUT50SP17; +FLUTISP; +IRBE300T25 PO; -IRBE300T7 PO; -OLAN2.5T25 PO; +OLAN2.5T53 PO
[2024-11-19 13:30] LABS: BASO % 0.1 % (0.0-1.0); HEMATOCRIT 37.7 % (36.0-47.0); HEMOGLOBIN 12.6 g/dl (12.0-15.5); LYMPH # 0.3 10^3/uL (1.5-5.0); LYMPH % 1.9 % (24.0-44.0); MEAN CORPUSCULAR HGB CONC 33.4 g/dl (32.0-36.5); MEAN CORPUSCULAR VOLUME 86.9 fl (80.0-96.0); MONO # 0.2 10^3/uL (0.0-0.8); MONO % 1.3 % (2.0-8.0); NEUTROPHILS # 15.5 10^3/uL (1.5-8.5); NEUTROPHILS % 96.1 % (36.0-66.0); PLATELET COUNT, AUTOMATED 274 10^3/uL (150-450); RED BLOOD COUNT 4.34 10^6/uL (4.00-5.40); WHITE BLOOD COUNT 16.2 10^3/uL (4.0-10.0)
[2024-11-19] MEDS: ACETAMINOPHEN 325 MG TAB PO ONE (13:38)
[2024-11-19 13:50] LABS: KETONE, URINE AUTO RFX TRACE mg/dL (NEGATIVE); NITRITE, URINE AUTO RFX NEGATIVE (NEGATIVE); RBC, URINE AUTO RFX 26 /HPF (0-3); SQUAM EPITHELIAL CELL UR AURFX 5 /HPF (0-6); YEAST LIKE CELL URINE AUTO RFX SMALL
[2024-11-19 13:52] LABS: LEUKOCYTE ESTERASE UR AUTO RFX 2+ (NEGATIVE); WBC, URINE AUTO RFX 64 /HPF (0-3)
[2024-11-19] MEDS: NS (Normal Saline) 0.9% 1,000 ML IV ONE ×2 (13:58→16:10)
[2024-11-19 14:04] LABS: THYROID STIMULATING HORMONE 2.43 uIU/ML (0.55-4.78)
[2024-11-19 14:10] LABS: AMPHETAMINES LEVEL URINE NEGATIVE (NEGATIVE); BARBITURATES URINE NEGATIVE (NEGATIVE); CANNABINOIDS URINE NEGATIVE (NEGATIVE); COCAINE METABOLITE URINE NEGATIVE (NEGATIVE); METHADONE URINE NEGATIVE (NEGATIVE); OPIATES URINE NEGATIVE (NEGATIVE); PHENCYCLIDINE URINE NEGATIVE (NEGATIVE)
[2024-11-19] MEDS: cefTRIAXone SOD 2 GM in DEXTROSE 5% (D5W) ADV/MINI-BAG 50 ML IV ONE (14:12)
[2024-11-19 14:13] LABS: BENZODIAZEPINES URINE POSITIVE (NEGATIVE)
[2024-11-19 14:18] LABS: BILIRUBIN,DIRECT 0.2 MG/DL (<0.4); BILIRUBIN,TOTAL 0.7 MG/DL (0.3-1.2); CALCIUM LEVEL 8.8 MG/DL (8.3-10.6); CREATININE FOR GFR 1.19 MG/DL (0.55-1.30); GLOMERULAR FILTRATION RATE 47.1 (>39); POTASSIUM SERUM 4.6 MMOL/L (3.5-5.1); TOTAL PROTEIN 6.7 G/DL (5.7-8.2)
[2024-11-19] MEDS: [UNRECOGNIZED DRUG - OTHER] IV ONE (14:20)
[2024-11-19] MEDS: NS 0.9% IV ONE (14:20)
[2024-11-19] MEDS: HYDROCORTISONE 100MG/2ML VIAL IV ONE (15:05)
[2024-11-19] MEDS: NS 500 ML IV ONE (16:10)
[2024-11-19] MEDS ORDERED: NOREPINEPHRINE 4MG IN D5 250ML 4 MG in IV 1 EA IV SCH (17:20)
[2024-11-19] MEDS ORDERED: VASOPRESSIN IN 0.9 % NACL 20 UNIT in IV 1 EA IV SCH (17:20)
[2024-11-19] MEDS ORDERED: FARX1TAB3 PO (18:30)
[2024-11-19] MEDS ORDERED: OLAN1TAB16 PO (18:30)
[2024-11-19] MEDS ORDERED: PARO40TA2 PO (18:30)
[2024-11-19] MEDS ORDERED: PARO20TA3 PO (18:30)
[2024-11-19] MEDS ORDERED: TOLT2TAB12 PO (18:31)
[2024-11-19] MEDS ORDERED: IRBE150T27 PO (18:31)
[2024-11-19] MEDS ORDERED: MED REC COMMENT (18:31)
[2024-11-19] MEDS ORDERED: NS (Normal Saline) 0.9% 1,000 ML IV SCH (18:35)
[2024-11-19] MEDS ORDERED: HOME MED LIST COMPLETE! XX SCH (18:35)
[2024-11-19] MEDS: NS (Normal Saline) 0.9% 1,000 ML IV SCH (19:26)
[2024-11-19] MEDS: HYDROCORTISONE 100MG/2ML VIAL IV SCH (23:47)
[2024-11-19] MEDS: ACETAMINOPHEN 325 MG TAB PO PRN (23:47)
[2024-11-20] VITALS (22 sets, daily range): BP systolic 94–126; BP diastolic 50–73; TEMP 98.4–99.4; O2SAT 93–99
[2024-11-20 05:35] LABS: HEMATOCRIT 31.1 % (36.0-47.0); MEAN CORPUSCULAR HEMOGLOBIN 29.1 pg (27.0-33.0); MEAN CORPUSCULAR HGB CONC 33.1 g/dl (32.0-36.5); MEAN CORPUSCULAR VOLUME 87.9 fl (80.0-96.0); PLATELET COUNT, AUTOMATED 214 10^3/uL (150-450); RED BLOOD COUNT 3.54 10^6/uL (4.00-5.40); WHITE BLOOD COUNT 16.1 10^3/uL (4.0-10.0)
[2024-11-20 05:38] LABS: HEMOGLOBIN 10.3 g/dl (12.0-15.5)
[2024-11-20 05:57] LABS: ALBUMIN 2.3 G/DL (3.2-5.2); BILIRUBIN,TOTAL 0.4 MG/DL (0.3-1.2); CALCIUM LEVEL 7.8 MG/DL (8.3-10.6); CREATININE FOR GFR 1.21 MG/DL (0.55-1.30); GLOMERULAR FILTRATION RATE 46.2 (>39); MAGNESIUM LEVEL 1.7 MG/DL (1.8-2.4); PHOSPHORUS LEVEL 3.4 MG/DL (2.4-5.1); POTASSIUM SERUM 3.6 MMOL/L (3.5-5.1); TOTAL PROTEIN 5.4 G/DL (5.7-8.2)
[2024-11-20] MEDS: MAG SULF 1GM/100ML (MAG RUN) 1 GM in IV 1 EA IV ONE (07:55)
[2024-11-20] MEDS ORDERED: GLUCAGON INJ 1MG VIAL SC PRN (09:20)
[2024-11-20] MEDS ORDERED: GLUCOSE 4 GM CHEW PO PRN (09:20)
[2024-11-20] MEDS ORDERED: DEXTROSE 50% 50ML SYRINGE IV PRN (09:20)
[2024-11-20] MEDS: ENOXAPARIN 40MG/0.4ML SYRINGE (J1650 PER 10MG) SC SCH (09:27)
[2024-11-20] MEDS: cefTRIAXone SOD 1 GM in DEXTROSE 5% (D5W) ADV/MINI-BAG 50 ML IV SCH (09:27)
[2024-11-20] MEDS ORDERED: ISOVUE-370 76% 100ML VIAL As Ordered ONE (09:45)
[2024-11-20] MEDS: KCL 10MEQ/100ML SWI (KRUN) 10 MEQ in IV 1 EA IV ONE (11:49)
[2024-11-20] MEDS: INSULIN LISPRO (NovoLOG) PER UNIT SC SCH ×2 (11:51→21:12)
[2024-11-21 03:55] VITALS: BP 134/78; TEMP 98.4; O2SAT 98
[2024-11-21 06:26] LABS: BASO % 0.1 % (0.0-1.0); HEMATOCRIT 32.7 % (36.0-47.0); HEMOGLOBIN 10.7 g/dl (12.0-15.5); LYMPH # 0.7 10^3/uL (1.5-5.0); MEAN CORPUSCULAR HEMOGLOBIN 28.4 pg (27.0-33.0); MEAN CORPUSCULAR HGB CONC 32.7 g/dl (32.0-36.5); MEAN CORPUSCULAR VOLUME 86.7 fl (80.0-96.0); MONO # 0.5 10^3/uL (0.0-0.8); MONO % 3.6 % (2.0-8.0); NEUTROPHILS # 11.1 10^3/uL (1.5-8.5); NEUTROPHILS % 89.8 % (36.0-66.0); PLATELET COUNT, AUTOMATED 221 10^3/uL (150-450); RED BLOOD COUNT 3.77 10^6/uL (4.00-5.40); WHITE BLOOD COUNT 12.3 10^3/uL (4.0-10.0)
[2024-11-21 06:51] LABS: CALCIUM LEVEL 8.6 MG/DL (8.3-10.6); CREATININE FOR GFR 1.2 MG/DL (0.55-1.30); GLOMERULAR FILTRATION RATE 46.6 (>39); POTASSIUM SERUM 4.1 MMOL/L (3.5-5.1)
[2024-11-21] MEDS ORDERED: BACI1CAP PO (13:30)
[2024-11-21] MEDS ORDERED: CEFD300CAP PO (13:30)
[2024-11-21] MEDS ORDERED: MIDODRINE 5 MG TAB PO SCH (16:00)
[2024-11-21 20:31] VITALS: BP 169/88; TEMP 97.2; O2SAT 98
[2024-11-22 04:00] VITALS: BP 138/81; TEMP 97.2; O2SAT 99
[2024-11-22 06:22] LABS: BASO % 0.3 % (0.0-1.0); EOS # 0.2 10^3/uL (0.0-0.5); EOS % 1.7 % (0.0-3.0); HEMOGLOBIN 10.5 g/dl (12.0-15.5); LYMPH # 1.8 10^3/uL (1.5-5.0); LYMPH % 16.3 % (24.0-44.0); MEAN CORPUSCULAR HGB CONC 32.8 g/dl (32.0-36.5); MEAN CORPUSCULAR VOLUME 88.4 fl (80.0-96.0); MONO # 0.7 10^3/uL (0.0-0.8); NEUTROPHILS # 8.1 10^3/uL (1.5-8.5); NEUTROPHILS % 75.3 % (36.0-66.0); PLATELET COUNT, AUTOMATED 218 10^3/uL (150-450); RED BLOOD COUNT 3.62 10^6/uL (4.00-5.40); WHITE BLOOD COUNT 10.8 10^3/uL (4.0-10.0)
[2024-11-22 06:46] LABS: CALCIUM LEVEL 8.5 MG/DL (8.3-10.6); CREATININE FOR GFR 1.13 MG/DL (0.55-1.30); GLOMERULAR FILTRATION RATE 50.1 (>39); POTASSIUM SERUM 3.5 MMOL/L (3.5-5.1)
[2024-11-22] MEDS: CEFDINIR 300 MG CAP (OMNICEF) PO SCH (08:05)
[2024-11-22 11:50] VITALS: BP 137/80; TEMP 97; O2SAT 98
== END 2024-11-22 14:45 | disposition home health service (06) | DRG 871 ==
LOC: M ED 12:49 → EDBD 12:49 → M ED INP 17:16 → M ICU 17:53 → M MSPAV 11-20 14:02
PROVIDERS: ADMIT Internal Medicine Critical Care Medicine; ATTEND General Practice
PROC: 02HV33Z Insertion of Infusion Device into Superior Vena Cava, Percutaneous Approach (ICD-10-PCS; principal; 2024-11-19)
PROC: B246ZZZ Ultrasonography of Right and Left Heart (ICD-10-PCS; 2024-11-20)
DX: A41.59 Other Gram-negative sepsis (principal); R65.21 Severe sepsis with septic shock; G93.41 Metabolic encephalopathy; I21.A1 Myocardial infarction type 2; N39.0 Urinary tract infection, site not specified; E87.21 Acute metabolic acidosis; G47.33 Obstructive sleep apnea (adult) (pediatric); J45.909 Unspecified asthma, uncomplicated; I10 Essential (primary) hypertension; E11.9 Type 2 diabetes mellitus without complications; F22 Delusional disorders; Z96.653 Presence of artificial knee joint, bilateral; Z90.49 Acquired absence of other specified parts of digestive tract; Z79.84 Long term (current) use of oral hypoglycemic drugs; Z79.899 Other long term (current) drug therapy; Z88.8 Allergy status to other drugs, medicaments and biological substances; Z91.048 Other nonmedicinal substance allergy status; R41.89 Other symptoms and signs involving cognitive functions and awareness; B96.1 Klebsiella pneumoniae [K. pneumoniae] as the cause of diseases classified elsewhere; D64.9 Anemia, unspecified; E83.42 Hypomagnesemia

== ENCOUNTER 2024-12-23 16:32 | Emergency (ER) | payer MEDICARE, BC ==
[~2024-12-23] VITALS: Ht 154.9 cm; Wt 190.0 kg
[~2024-12-23 16:32] MED LIST changes: +BACI1CAP PO; +CEFD300CAP PO; +FARX1TAB3 PO; +IRBE150T27 PO; +MED REC COMMENT; +PARO20TA3 PO; +PARO40TA2 PO
[2024-12-23 17:20] LABS: VENOUS BASE EXCESS -2.8 (-2.0-2.0); VENOUS HCO3 22.4 MMOL/L (23.0-27.0); VENOUS O2 SATURATION 65.7 % (60.0-80.0); VENOUS PARTIAL PRESSURE CO2 40.4 mmHg (38.0-50.0); VENOUS PARTIAL PRESSURE O2 34.3 mmHg (30.0-50.0); VENOUS PH 7.362 UNITS (7.330-7.430); VENOUS STANDARD HCO3 21.5 MMOL/L; VENOUS TOTAL CO2 23.7 MMOL/L (24.0-28.0)
[2024-12-23 17:25] LABS: BASO # 0.1 10^3/uL (0.0-0.2); BASO % 0.7 % (0.0-1.0); EOS # 0.1 10^3/uL (0.0-0.5); EOS % 1.2 % (0.0-3.0); HEMATOCRIT 36.1 % (36.0-47.0); HEMOGLOBIN 11.6 g/dl (12.0-15.5); LYMPH # 1.3 10^3/uL (1.5-5.0); LYMPH % 11.1 % (24.0-44.0); MEAN CORPUSCULAR HEMOGLOBIN 28.3 pg (27.0-33.0); MEAN CORPUSCULAR HGB CONC 32.1 g/dl (32.0-36.5); MONO # 0.9 10^3/uL (0.0-0.8); MONO % 7.2 % (2.0-8.0); NEUTROPHILS # 9.3 10^3/uL (1.5-8.5); NEUTROPHILS % 77.1 % (36.0-66.0); PLATELET COUNT, AUTOMATED 421 10^3/uL (150-450)
[2024-12-23 17:54] LABS: ALBUMIN 2.6 G/DL (3.2-5.2); BILIRUBIN,DIRECT 0.1 MG/DL (<0.4); BILIRUBIN,TOTAL 0.2 MG/DL (0.3-1.2); CALCIUM LEVEL 8.4 MG/DL (8.3-10.6); CREATININE FOR GFR 1.58 MG/DL (0.55-1.30); GLOMERULAR FILTRATION RATE 33.5 (>39); POTASSIUM SERUM 4.9 MMOL/L (3.5-5.1); TOTAL PROTEIN 7.3 G/DL (5.7-8.2)
[2024-12-23 17:56] LABS: THYROID STIMULATING HORMONE 1.946 uIU/ML (0.55-4.78)
[2024-12-23 19:06] LABS: KETONE, URINE AUTO RFX NEGATIVE (NEGATIVE); NITRITE, URINE AUTO RFX NEGATIVE (NEGATIVE); RBC, URINE AUTO RFX 5 /HPF (0-3); SQUAM EPITHELIAL CELL UR AURFX 10 /HPF (0-6)
[2024-12-23 19:13] LABS: LEUKOCYTE ESTERASE UR AUTO RFX 3+ (NEGATIVE); WBC, URINE AUTO RFX 38 /HPF (0-3)
[2024-12-23] MEDS ORDERED: CEFD1CAP9 PO (19:36)
[2024-12-23 19:45] VITALS: BP 117/61; O2SAT 97
[2024-12-23 20:03] VITALS: TEMP 96.3
[2024-12-23] MEDS: CEFDINIR 300 MG CAP PO ONE (20:03)
== END 2024-12-23 20:15 | disposition home or self-care (01) ==
LOC: M ED 16:32
DX: N39.0 Urinary tract infection, site not specified (principal); R41.0 Disorientation, unspecified; I25.2 Old myocardial infarction; E11.9 Type 2 diabetes mellitus without complications; J45.909 Unspecified asthma, uncomplicated; I10 Essential (primary) hypertension; G47.33 Obstructive sleep apnea (adult) (pediatric); Z88.8 Allergy status to other drugs, medicaments and biological substances; Z91.048 Other nonmedicinal substance allergy status; Z79.2 Long term (current) use of antibiotics; Z79.899 Other long term (current) drug therapy

== ENCOUNTER → 2025-04-22 | Outpatient (REF) | payer MEDICARE, BC ==
[~2025-04-22] MED LIST changes: +CEFD1CAP9 PO; -IBUP-1022 PO; +IBUP600T42 PO; +PRAV10TA PO; -PRAV10TA3 PO; -PRAV10TA4 PO; +PRAV10TA43 PO; -PRAV20TA2 PO; +PRAV20TA78 PO; -VITA100T14 PO; +VITA100T69 PO
[2025-04-22 15:48] LABS: APPEARANCE, URINE CLOUDY (CLEAR); BACTERIA, URINE AUTO 1+ (NEGATIVE); BILIRUBIN, URINE AUTO NEGATIVE (NEGATIVE); BLOOD, URINE BLOOD 3+ (NEGATIVE); GLUCOSE, URINE (UA) AUTO NEGATIVE (NEGATIVE); KETONE, URINE AUTO NEGATIVE (NEGATIVE); LEUKOCYTE ESTERASE, URINE AUTO 3+ (NEGATIVE); MUCUS, URINE SMALL (NEGATIVE); NITRITE, URINE AUTO NEGATIVE (NEGATIVE); PROTEIN, URINE AUTO 2+ mg/dL (NEGATIVE); RBC, URINE AUTO 115 /HPF (0-3); SPECIFIC GRAVITY URINE AUTO 1.015 (1.002-1.035); SQUAMOUS EPITHELIAL CELL UR AU 4 /HPF (0-6); UROBILINOGEN, URINE AUTO 0.2 mg/dL (0.0-2.0); WBC, URINE AUTO TNTC /HPF (0-3); YEAST LIKE CELL URINE AUTO SMALL
== END ==
LOC: M LAB REF 14:37
PROVIDERS: ATTEND Internal Medicine
DX: Z01.818 Encounter for other preprocedural examination (principal); N39.0 Urinary tract infection, site not specified

== ENCOUNTER → 2025-05-06 | Outpatient (REF) | payer MEDICARE, BC ==
[~2025-05-06] MED LIST changes: +B-12100010 PO; +B-650TAB2 PO; +BIOT1TAB PO; +FERR325T81 PO; +MULTTAB61 PO; +PROA1AER2; +VITA100093 PO; +VITA100T91 PO
[2025-05-06 15:10] LABS: APPEARANCE, URINE CLOUDY (CLEAR); BACTERIA, URINE AUTO 2+ (NEGATIVE); BILIRUBIN, URINE AUTO NEGATIVE (NEGATIVE); BLOOD, URINE BLOOD 2+ (NEGATIVE); GLUCOSE, URINE (UA) AUTO NEGATIVE (NEGATIVE); KETONE, URINE AUTO NEGATIVE (NEGATIVE); LEUKOCYTE ESTERASE, URINE AUTO 3+ (NEGATIVE); MUCUS, URINE SMALL (NEGATIVE); NITRITE, URINE AUTO NEGATIVE (NEGATIVE); PROTEIN, URINE AUTO NEGATIVE (NEGATIVE); RBC, URINE AUTO 37 /HPF (0-3); SPECIFIC GRAVITY URINE AUTO 1.009 (1.002-1.035); SQUAMOUS EPITHELIAL CELL UR AU 1 /HPF (0-6); UROBILINOGEN, URINE AUTO 0.2 mg/dL (0.0-2.0); WBC, URINE AUTO TNTC /HPF (0-3); YEAST LIKE CELL URINE AUTO SMALL
== END ==
LOC: M LAB REF 14:21
PROVIDERS: ATTEND Internal Medicine
DX: Z01.818 Encounter for other preprocedural examination (principal); Z79.899 Other long term (current) drug therapy

== ENCOUNTER 2025-05-15 09:49 | Day surgery (SDC) | payer MEDICARE, BC ==
[~2025-05-15] VITALS: Ht 160 cm; Wt 78.6 kg
[2025-05-15] MEDS: LR 1,000 ML IV SCH (10:05)
[2025-05-15] MEDS: LevoFLOXacin IV 500 MG in IV 1 EA IV ONE (10:25)
[2025-05-15] MEDS ORDERED: JANU25TA PO (11:01)
[2025-05-15] MEDS ORDERED: AMOX875T2 PO (11:03)
[2025-05-15] MEDS ORDERED: ONDANSETRON 4MG/2ML VIAL As Ordered ONE (11:41)
[2025-05-15] MEDS ORDERED: LIDOCAINE 2% 100 MG/5 ML SDV (FOR ANES.) As Ordered ONE (11:41)
[2025-05-15] MEDS ORDERED: dexAMETHasone 4 MG/ML 1 ML VIAL As Ordered ONE (11:41)
[2025-05-15] MEDS ORDERED: KETOROLAC 30 MG/ML 1 ML VIAL As Ordered ONE (11:42)
[2025-05-15] MEDS ORDERED: ACETAMINOPHEN 1000MG/100ML IV BAG As Ordered ONE (12:24)
[2025-05-15] MEDS: ISOVUE-300 61% 100 ML VIAL As Ordered ONE (13:00)
[2025-05-15] MEDS ORDERED: HYDROMORPHONE HCL 0.5 MG/0.5 ML SYRINGE IV PRN (13:10)
[2025-05-15] MEDS ORDERED: ONDANSETRON 4MG/2ML VIAL IV PRN (13:10)
[2025-05-15] MEDS ORDERED: LR 1,000 ML IV SCH (13:10)
[2025-05-15 14:43] VITALS: BP 132/68; TEMP 97.9; O2SAT 98
[2025-05-15] MEDS ORDERED: LEVO1TAB39 PO (14:47)
[2025-05-15] MEDS ORDERED: OXYB5TAB14 PO (14:47)
[2025-05-15] MEDS ORDERED: PYRI1TAB5 PO (14:47)
== END 2025-05-15 15:01 | disposition home or self-care (01) ==
LOC: M SDC 09:49
PROVIDERS: ATTEND Urology
DX: N20.1 Calculus of ureter (principal); Z96.0 Presence of urogenital implants; E11.9 Type 2 diabetes mellitus without complications; G47.33 Obstructive sleep apnea (adult) (pediatric); Z91.048 Other nonmedicinal substance allergy status; Z79.899 Other long term (current) drug therapy
CPT/HCPCS: 52356; 74420; 82365; C1769; C2617; J0131; J1100; J1885; J1956; J2405; J3010; Q9967

== ENCOUNTER → 2025-07-07 | Outpatient (REF) | payer MEDICARE, BC ==
[~2025-07-07] MED LIST changes: +AMOX875T2 PO; +JANU25TA PO; +LEVO1TAB39 PO; +OXYB5TAB14 PO; +PYRI1TAB5 PO
== END ==
LOC: M LAB REF 17:21
PROVIDERS: ATTEND Nurse Practitioner Family
DX: R41.3 Other amnesia (principal)